=== PATIENT | female | born 1930 | race Two or more races ===

== ENCOUNTER 2020-04-22 10:09 | Inpatient (IN) | payer MEDICAID, MEDICARE, OTHER ==
[~2020-04-22] VITALS: Ht 172.7 cm; Wt 89.2 kg
[2020-04-22] MEDS ORDERED: cloNIDine HCL 0.1 MG TAB PO ONE (10:30)
[2020-04-22 11:09] LABS: Basophils # (auto) 0 10 ^3/uL (0-0.2); Basophils % (auto) 0.1 % (0.0-2.0); Eosinophils # (auto) 0 10 ^3/uL (0-0.8); Eosinophils % (auto) 0.1 % (0.0-7.0); Hematocrit 41.2 % (36.0-46.0); Hemoglobin 13.5 g/dL (12.2-16.2); Lymphocytes # (auto) 0.6 10 ^3/uL (0.4-5.4); Lymphocytes % (auto) 13.9 % (10.0-50.0); Mean Corpuscular Hemoglobin 30.8 pg (28.0-32.0); Mean Corpuscular Hgb Conc. 32.7 g/dL (32.0-36.0); Mean Corpuscular Volume 94.2 fL (80.0-100.0); Monocytes # (auto) 0.4 10 ^3/uL (0-1.3); Monocytes % (auto) 8.6 % (0.0-12.0); Neutrophils # (auto) 3.5 10 ^3/uL (1.6-8.6); Neutrophils % (auto) 77.3 % (37.0-80.0); Platelet Count (auto) 349 10^3/uL (140-450); Red Blood Cells 4.37 10^6/uL (4.0-5.20); Red Cell Distribution Width 13.1 % (11.8-14.3); White Blood Cell 4.5 10^3/uL (4.4-10.8)
[2020-04-22 11:24] LABS: Anion Gap 7 (5-15); Blood Urea Nitrogen 10 mg/dL (7-18); Calcium 8.6 mg/dL (8.5-10.1); Carbon Dioxide 24 mmol/L (21-32); Chloride 103 mmol/L (98-107); Glucose 101 mg/dL (74-106); Potassium 3.7 mmol/L (3.5-5.1); Sodium 134 mmol/L (136-145)
[2020-04-22 11:30] LABS: Alanine Aminotransferase 35 U/L (13-56); Alkaline Phosphatase 100 U/L (45-117); Aspartate Aminotransferase 51 U/L (15-37); BUN/Creatinine Ratio 11.8; Bilirubin, Total 0.5 mg/dL (0.2-1.0); GFR African American 81 mL/min; GFR Non-African American 67 mL/min; Total Protein 8.1 g/dL (6.4-8.2)
[2020-04-22 11:42] LABS: CRP High Sensitivity 11.6 mg/dL (< 0.3)
[2020-04-22 13:20] LABS: Urine Bacteria NONE SEEN /hpf (None Seen); Urine Blood Negative /uL (Negative); Urine WBC 4 /hpf (0 - 5)
[2020-04-22 13:30] VITALS: BP 148/85
[2020-04-22] MEDS ORDERED: ASCORBIC ACID 500 MG TAB PO ONE (13:30)
[2020-04-22] MEDS ORDERED: ZINC SULFATE 220mg CAP or TAB PO ONE (13:30)
[2020-04-22] MEDS ORDERED: DOXYCYCLINE 100 MG TAB/CAP PO ONE (13:30)
[2020-04-22] MEDS ORDERED: NITROGLYCERIN 0.4 MG SL TAB SL PRN (14:00)
[2020-04-22] MEDS: ALBUTEROL SULF HFA 90MCG INH 200DOSE IN SCH ×2 (14:00→22:30)
[2020-04-22] MEDS ORDERED: MORPHINE SULF INJ 2 MG/ML SYRINGE 1ML IV PRN (14:00)
--- NOTE | 2020-04-22 14:00 | NUR ---
Respiratory note: PT IS AWAKE, AND ALERT. NO RESPIRATORY DISTRESS NOTED. SPO2 96% ON 2L NC, HR 59, RR18, BS DIMINISHED BILATERALLY. 1 PUFF ALBUTEROL GIVEN VIA MDI WITH CHAMBER. NO ADVERSE EFFECTS NOTED. WILL CONTINUE TO MONITOR PT. CHARTING COMPLETE FROM OUTSIDE OF PT ROOM.
[2020-04-22] MEDS ORDERED: ONDANSETRON HCL 4 MG/2 ML VIAL IV PRN (14:15)
[2020-04-22] MEDS ORDERED: traMADol HCL 50 MG TAB PO PRN (14:15)
[2020-04-22] MEDS ORDERED: ENOXAPARIN SOD 100 MG/1 ML SYRINGE SC ONE (14:30)
[2020-04-22] MEDS ORDERED: IOHEXOL 350 MG/ML 100ML IJ ONE (15:46)
[2020-04-22] MEDS: hydrALAZINE HCL 20 MG/ML VL IV PRN ×2 (17:17→23:05)
[2020-04-22] MEDS ORDERED: ENOXAPARIN SOD 40 MG/0.4 ML SYRINGE SC SCH (22:00)
[2020-04-22 22:15] VITALS: BP 171/107
--- NOTE | 2020-04-22 22:20 | NUR ---
Telemetry admit from [facility] admitted to Telemetry unit. Patient oriented to primary RN, unit, room, bed, and unit policies regarding patient care and visiting hours. Patient now on continuous telemetry monitoring, tele box #12 and telemetry reading on arrival to unit is sinus rhythm. Patient weighed by bedscale and encouraged to call if they need something. All questions and concerns addressed, patient verbalized understanding. Bed in lowest locked position, call light within reach, side rails up x2. Will continue to monitor for changes Q1hr and PRN.
[2020-04-22] MEDS: FAMOTIDINE 20 MG TAB PO SCH (22:30)
[2020-04-22] MEDS: ENOXAPARIN SOD 100 MG/1 ML SYRINGE SC SCH (22:30)
--- NOTE | 2020-04-22 22:30 | NUR ---
Respiratory note: ALBUTEROL MDI ADMINISTERED BY RN.
[2020-04-22] MEDS: ACETAMINOPHEN 500 MG TAB PO PRN (23:05)
--- NOTE | 2020-04-23 00:10 | NUR ---
Temperature Remains elevated. Original temp oral at 101.9, tylenol was given see eMAR. Upon reassessment temp remained elevated at 102.3. Cooling measures initiated. Will continue to monitor.
--- NOTE | 2020-04-23 00:10 | NUR ---
BP recheck BP at 133/71 after PRN hydralazine was given, see eMAR. Continue care.
--- NOTE | 2020-04-23 01:05 | NUR ---
Temperature Recheck remains elevated at 101.3 oral temp. Will continue cooling measures. Addendum: 04/23/20 at 0228 by AR AGUILAR OCA, RN 5: Oral temp recheck at 98.9. Will continue care.
[2020-04-23] MEDS ORDERED: METO-159 PO (01:42)
[2020-04-23 05:00] VITALS: BP 136/60
[2020-04-23] MEDS: ALBUTEROL SULF HFA 90MCG INH 200DOSE IN SCH ×3 (06:35→22:39)
--- NOTE | 2020-04-23 06:35 | NUR ---
Respiratory note: PT RESTING COMFORTABLY. NO RESPIRATORY DISTRESS NOTED. SPO2 94% ON RA, HR 88, RR 18, BS CLEAR/DIMINISHED BILATERALLY. 1 PUFF ALBUTEROL (90MCG) GIVEN BY RN VIA MDI WITH CHAMBER, WITH NO ADVERSE EFFECTS NOTED. PT INFORMED TO PUSH CALL BUTTON IF INCREASED WOB, SOB, OR WHEEZING OCCURS. NO FURTHER RESPIRATORY INTERVENTIONS INDICATED. CHARTING COMPLETE FROM OUTSIDE OF PT ROOM.
[2020-04-23 06:37] LABS: Basophils # (auto) 0 10 ^3/uL (0-0.2); Basophils % (auto) 0.3 % (0.0-2.0); Eosinophils # (auto) 0 10 ^3/uL (0-0.8); Hematocrit 36.7 % (36.0-46.0); Hemoglobin 12.6 g/dL (12.2-16.2); Lymphocytes # (auto) 0.8 10 ^3/uL (0.4-5.4); Mean Corpuscular Hemoglobin 31.7 pg (28.0-32.0); Mean Corpuscular Hgb Conc. 34.2 g/dL (32.0-36.0); Mean Corpuscular Volume 92.8 fL (80.0-100.0); Monocytes # (auto) 0.4 10 ^3/uL (0-1.3); Monocytes % (auto) 11.2 % (0.0-12.0); Neutrophils # (auto) 2.8 10 ^3/uL (1.6-8.6); Neutrophils % (auto) 69.5 % (37.0-80.0); Nucleated Red Blood Cells % 0.1 %; Platelet Count (auto) 319 10^3/uL (140-450); Red Blood Cells 3.96 10^6/uL (4.0-5.20); Red Cell Distribution Width 12.6 % (11.8-14.3)
--- NOTE | 2020-04-23 07:00 | NUR ---
Respiratory note: ALBUTEROL MDI WITH CHAMBER MISPLACED DURING [facility] ER[facility]. PHARMACY CONTACTED TO REPLACE ALBUTEROL MDI. RN AWARE.
[2020-04-23 07:02] LABS: Albumin 2.6 g/dL (3.4-5.0); BUN/Creatinine Ratio 15.5; Calcium 8.5 mg/dL (8.5-10.1); Potassium 3.4 mmol/L (3.5-5.1)
[2020-04-23 07:03] LABS: Bilirubin, Total 0.5 mg/dL (0.2-1.0); Total Protein 6.9 g/dL (6.4-8.2)
[2020-04-23 09:00] VITALS: BP 137/68
[2020-04-23] MEDS: cefTRIAXone 1GM/50ML D5W 50 ML IV SCH (10:18)
[2020-04-23] MEDS: FAMOTIDINE 20 MG TAB PO SCH ×2 (10:36→22:40)
[2020-04-23] MEDS: AZITHROMYCIN 500MG/ 250ML 250 ML IV SCH (10:36)
[2020-04-23] MEDS: ZINC SULFATE 220mg CAP or TAB PO SCH (10:36)
[2020-04-23] MEDS: ASCORBIC ACID 1,000 MG TAB PO SCH (10:36)
[2020-04-23] MEDS: CHOLECALCIFEROL (VITD3) 1,000UNIT=25mCg TAB PO SCH (10:36)
[2020-04-23] MEDS: ENOXAPARIN SOD 100 MG/1 ML SYRINGE SC SCH (10:37)
--- NOTE | 2020-04-23 10:43 | NUR ---
PATIENT SITTING ON CHAIR ON 2L NC. Addendum: 04/23/20 at 1044 by EZEKIEL WANG RN RN NO S/S OF DISTRESS NOTED AT THIS TIME. PATIENT SITTING COMFORTABLY.
[2020-04-23] MEDS: ACETAMINOPHEN 500 MG TAB PO PRN (12:36)
[2020-04-23 13:00] VITALS: BP 134/85
--- NOTE | 2020-04-23 14:27 | NUR ---
Respiratory note: 1 PUFF ALBUTEROL (90MCG) GIVEN BY RN VIA MDI WITH CHAMBER, WITH NO ADVERSE EFFECTS NOTED. NO FURTHER RESPIRATORY INTERVENTIONS INDICATED. CHARTING COMPLETE FROM OUTSIDE OF PT ROOM.
[2020-04-23] MEDS ORDERED: POTASSIUM EFFERVESENT TAB 25 MEQ PO ONE (14:45)
[2020-04-23] MEDS ORDERED: DexAMETHasone SOD PHOS 4 MG/1ML SDV INJ IV ONE (14:45)
[2020-04-23] MEDS ORDERED: FUROSEMIDE 20 MG/2 ML VIAL IV ONE (14:45)
[2020-04-23] MEDS ORDERED: amLODIPine BESYLATE 5 MG TAB PO ONE (14:45)
[2020-04-23 17:00] VITALS: BP 138/94
--- NOTE | 2020-04-23 20:00 | NUR ---
Opening Shift Note Assumed care of patient. Awake, alert and oriented x4. No S/S of distress/SOB or pain. Patient with nasal cannula on set at 2L. Instructed on POC and to call for assist PRN. Bed locked, in lowest position, call light within reach, side rails up x2. Will continue to monitor for changes Q1hr and PRN.
[2020-04-23 22:00] VITALS: BP 160/80
[2020-04-23] MEDS: DexAMETHasone 4 MG TAB PO SCH (22:39)
[2020-04-24 05:00] VITALS: BP 162/107
[2020-04-24] MEDS: ALBUTEROL SULF HFA 90MCG INH 200DOSE IN SCH ×3 (06:05→21:53)
[2020-04-24] MEDS: hydrALAZINE HCL 20 MG/ML VL IV PRN (06:06)
--- NOTE | 2020-04-24 08:00 | NUR ---
OPENING SHIFT NOTE: PATIENT SITTING AT SIDE OF BED. RESPIRATIONS EVEN AND UNLABORED. NO S/S OF DISTRESS NOTED. PATIENT DENIES ANY ACHES OR FATIGUE. PATIENT DENIES ANY SOB. PATIENT TITRATED DOWN TO 1L NC. PATIENT TOLERATING WELL RR AT 18RPM AND OXYGEN SATURATIONS AT 95%. INSTRUCTED ON IMPORTANCE OF INCENTIVE SPIROMETER. PROPER RETURN DEMONSTRATION PROVIDED AT 750ML. INSTRUCTED TO AMBULATE IN ROOM. PATIENT VERBALIZED UNDERSTANDING. BED IN LOWEST LOCKED POSITION WITH CALL LIGHT WITHIN REACH. WILL CONTINUE CARE.
[2020-04-24 09:00] VITALS: BP 160/97
[2020-04-24] MEDS: FUROSEMIDE 20 MG/2 ML VIAL IV SCH (09:50)
[2020-04-24] MEDS: cefTRIAXone 1GM/50ML D5W 50 ML IV SCH (09:50)
[2020-04-24] MEDS: AZITHROMYCIN 500MG/ 250ML 250 ML IV SCH (09:51)
[2020-04-24] MEDS: ZINC SULFATE 220mg CAP or TAB PO SCH (09:51)
[2020-04-24] MEDS: DexAMETHasone 4 MG TAB PO SCH ×2 (09:51→21:53)
[2020-04-24] MEDS: POTASSIUM EFFERVESENT TAB 25 MEQ PO SCH (09:51)
[2020-04-24] MEDS: amLODIPine BESYLATE 5 MG TAB PO SCH (09:52)
[2020-04-24] MEDS: FAMOTIDINE 20 MG TAB PO SCH ×2 (09:52→21:53)
[2020-04-24] MEDS: ASCORBIC ACID 1,000 MG TAB PO SCH (09:53)
[2020-04-24] MEDS: ENOXAPARIN SOD 40 MG/0.4 ML SYRINGE SC SCH (09:53)
[2020-04-24] MEDS: CHOLECALCIFEROL (VITD3) 1,000UNIT=25mCg TAB PO SCH (09:54)
[2020-04-24 13:00] VITALS: BP 152/88
--- NOTE | 2020-04-24 15:17 | NUR ---
Respiratory note: MDI GIVEN BY RN. PT TOLERATED WELL.
[2020-04-24 17:00] VITALS: BP 146/83
[2020-04-24] MEDS: hydrALAZINE HCL 10 MG TAB PO SCH (17:11)
--- NOTE | 2020-04-24 17:30 | NUR ---
PATIENT OXYGEN TITRATED DOWN TO 0.5 LITER NASAL CANNULA. PATIENT TOLERATING WELL. 02 SATURATIONS AT 94%.
--- NOTE | 2020-04-24 20:00 | NUR ---
Opening Shift Note Assumed care of patient. Awake, alert and oriented x4. No S/S of distress/SOB or pain. Patient with nasal cannula on set at 0.5 L. Instructed on POC and to call for assist PRN. Bed locked, in lowest position, call light within reach, side rails up x2. Will continue to monitor for changes Q1hr and PRN.
[2020-04-24 22:00] VITALS: BP 145/89
[2020-04-25] MEDS: hydrALAZINE HCL 10 MG TAB PO SCH ×3 (00:21→12:00)
[2020-04-25 05:00] VITALS: BP 120/70
[2020-04-25] MEDS: ALBUTEROL SULF HFA 90MCG INH 200DOSE IN SCH (05:57)
--- NOTE | 2020-04-25 08:00 | NUR ---
OPENING SHIFT NOTE ASSUMED CARE OF PATIENT AWAKE AND ALERT. NO S/S OF DISTRESS NOTED OR COMPLAINTS OF PAIN. PATIENT UPDATED ON POC FOR THE DAY AND ALL QUESTIONS ANSWERED. BED IS IN LOWEST, LOCKED POSITION WITH SIDE RAILS UP X2 AND CALL LIGHT WITHIN REACH. WILL CONTINUE TO MONITOR Q1H AND PRN.
[2020-04-25 09:00] VITALS: BP 103/65
[2020-04-25] MEDS: amLODIPine BESYLATE 5 MG TAB PO SCH (10:00)
[2020-04-25] MEDS: FUROSEMIDE 20 MG/2 ML VIAL IV SCH (10:00)
[2020-04-25] MEDS: ZINC SULFATE 220mg CAP or TAB PO SCH (10:06)
[2020-04-25] MEDS: AZITHROMYCIN 500MG/ 250ML 250 ML IV SCH (10:06)
[2020-04-25] MEDS: cefTRIAXone 1GM/50ML D5W 50 ML IV SCH (10:06)
[2020-04-25] MEDS: CHOLECALCIFEROL (VITD3) 1,000UNIT=25mCg TAB PO SCH (10:07)
[2020-04-25] MEDS: ASCORBIC ACID 1,000 MG TAB PO SCH (10:07)
[2020-04-25] MEDS: POTASSIUM EFFERVESENT TAB 25 MEQ PO SCH (10:07)
[2020-04-25] MEDS: DexAMETHasone 4 MG TAB PO SCH (10:07)
[2020-04-25] MEDS: ENOXAPARIN SOD 40 MG/0.4 ML SYRINGE SC SCH (10:07)
[2020-04-25] MEDS: FAMOTIDINE 20 MG TAB PO SCH (10:07)
--- NOTE | 2020-04-25 12:19 | NUR ---
SOCIAL SERVICE CONSULT AUTOMOTIVE DESIGN LAYOUT DRAFTER SPOKE WITH PT'S DAUGHTER LYSSA TO OBTAIN COLLATERAL INFORMATION FOR INITIAL ASSESSMENT. PT IS A 89 YR OLD MAORI SPEAKING FEMALE ADMITTED FOR PNA, COVID POSITIVE. PER DAUGHTER, PT IS IN [facility], LIMITED MEDICAL HX. PT DOES HAVE A WALKER AT HOME SHE USES NEEDED. PT RESIDES ALONE BUT PLANS TO DC TO HER DAUGHTER EUSEBIA'S ([phone]) HOME POST DC. EUSEBIA ALSO TESTED POSITIVE FOR COVID AND THEY WILL SELF QUARANTINE TOGETHER. FAMILY SUPPORTIVE AND ATTENTIVE. PT'S PCP IS DR. ZHU IN [place]. SHE DOES NOT HAVE ANY AHCD OR POA, LYSSA MAKES MEDICAL DECISIONS FOR PT. PLAN IS FOR PT TO DC HOME WITH FAMILY. NO OTHER SS NEEDS. SS TO REMAIN AVAILABLE NEEDED. Addendum: 04/25/20 at 1225 by COOKIE TORRES SS Amended: Links added.
[2020-04-25] MEDS ORDERED: CHOL1000 PO (13:17)
[2020-04-25] MEDS ORDERED: HYDR50TA15 PO (13:17)
[2020-04-25] MEDS ORDERED: AML5T PO (13:17)
[2020-04-25] MEDS ORDERED: DOXY-286 PO (13:18)
[2020-04-25] MEDS ORDERED: MULTCAP45 PO (13:21)
--- NOTE | 2020-04-25 14:10 | NUR ---
Discharge instructions given as ordered. Encourage to follow up with PMD as instructed. All questions and concerns addressed. Patient verbalized understanding. IV removed with catheter intact, pressure dressing applied. Telemetry unit returned to ICU. Patient taken to vehicle via wheelchair with all personal belongings, accompanied by staff, EVS, and security with all appropriate isolation precautions taken. No distress noted at time of departure.
== END 2020-04-25 14:15 | disposition home or self-care (01) | DRG 720 ==
LOC: EDBD 10:09 → ER 10:09 → TELE 10:10 → TELE-EAST 22:29
PROVIDERS: ADMIT Internal Medicine; ATTEND Internal Medicine Nephrology
DX: A41.89 Other specified sepsis (principal); J96.01 Acute respiratory failure with hypoxia; U07.1 COVID-19; J12.89 Other viral pneumonia; E66.9 Obesity, unspecified; E87.6 Hypokalemia; I10 Essential (primary) hypertension; Z68.29 Body mass index [BMI] 29.0-29.9, adult; R00.1 Bradycardia, unspecified
CPT/HCPCS: 36415; 71045; 71275; 80053; 81001; 82728; 83605; 83615; 83735; 83880; 84484; 85025; 85379; 86141; 87040; 87070; 87804; 87880; 94640; G0378; J0696; J1100; J2405